=== PATIENT | male | born 2000 | race Asian ===

== ENCOUNTER 2020-11-10 02:08 | Emergency (ER) | payer OTHER ==
[~2020-11-10] VITALS: Ht 185.4 cm; Wt 122.0 kg
[2020-11-10 02:10] VITALS: BP 141/96
--- NOTE | 2020-11-10 05:50 | NUR ---
NO ANSWER IN LOBBY
--- NOTE | 2020-11-10 06:23 | NUR ---
NO ANSWER IN LOBBY
--- NOTE | 2020-11-10 06:38 | NUR ---
NO ANSWER IN LOBBY
== END 2020-11-10 06:41 | disposition left against medical advice (07) ==
LOC: ED 06:35
DX: S20.319A Abrasion of unspecified front wall of thorax, initial encounter (principal); M79.661 Pain in right lower leg; M25.571 Pain in right ankle and joints of right foot; M54.2 Cervicalgia; V49.09XA Driver injured in collision with other motor vehicles in nontraffic accident, initial encounter; Y93.89 Activity, other specified; Y92.89 Other specified places as the place of occurrence of the external cause; Y99.8 Other external cause status
CPT/HCPCS: 71045; 72125; 99284

== ENCOUNTER 2020-11-13 14:45 | Outpatient (CLI) | payer OTHER | END 2020-11-13 23:59 | disposition home or self-care (01) | LOC: CFH 14:45 | PROVIDERS: ATTEND Physician Assistant Surgical | DX: S92.141A Displaced dome fracture of right talus, initial encounter for closed fracture (principal); S92.021A Displaced fracture of anterior process of right calcaneus, initial encounter for closed fracture; S92.191A Other fracture of right talus, initial encounter for closed fracture; X58.XXXA Exposure to other specified factors, initial encounter; Y93.89 Activity, other specified; Y92.89 Other specified places as the place of occurrence of the external cause; Y99.8 Other external cause status ==